=== PATIENT | male | born 1950 | race African-American/Black ===

== ENCOUNTER → 2016-12-07 | Outpatient (CLI) | payer OTHER ==
[~2016-12-07] VITALS: Ht 185.4 cm; Wt 95.3 kg
[~2016-12-07] MED LIST: COLACE100 MG PO; DITROPAN5 MG PO; DULCOLAX5 MG PO; DURAGESIC25 MCG TD; EFFEXOR75 MG PO; ELIQUIS5 MG PO; FINASTERIDE5 MG PO; FLOMAX0.4 MG PO; IRON325 MG PO; LOPERAMIDE2 M1 PO; MYRBETRIQ50 MG PO; OXAYDO5 MG PO; OXYCODONE-APAP1 EACH PO; PERCOCET 10/1 TABLET PO; PROSCAR5 MG PO; PYRIDIUM100 MG PO; URIBEL CAPSULE1 EACH PO; UROXATRAL10 MG PO; VITAMIN B125000 MCG PO; VITAMIN D31000 UNIT PO
== END | disposition home or self-care (01) ==
LOC: AMB 13:25
PROC: 0D5P8ZZ Destruction of Rectum, Via Natural or Artificial Opening Endoscopic (ICD-10-PCS; principal; 2016-12-07)
DX: K62.7 Radiation proctitis (principal); Z85.46 Personal history of malignant neoplasm of prostate; Z91.018 Allergy to other foods

== ENCOUNTER → 2017-04-02 | Outpatient (CLI) | payer OTHER ==
[~2017-04-02] VITALS: Ht 185.4 cm; Wt 95.3 kg
== END | disposition home or self-care (01) ==
LOC: AMB 13:00
PROC: 0D5P8ZZ Destruction of Rectum, Via Natural or Artificial Opening Endoscopic (ICD-10-PCS; principal; 2017-04-02)
DX: K62.7 Radiation proctitis (principal); Z85.46 Personal history of malignant neoplasm of prostate; Z92.3 Personal history of irradiation; K21.9 Gastro-esophageal reflux disease without esophagitis; Z86.718 Personal history of other venous thrombosis and embolism; Z86.711 Personal history of pulmonary embolism; Z79.01 Long term (current) use of anticoagulants; Z90.5 Acquired absence of kidney; Z91.013 Allergy to seafood
CPT/HCPCS: 93005